=== PATIENT | female | born 1955 | race Hispanic/Latino ===

== ENCOUNTER → 2019-06-06 | Day surgery (SDC) | payer BC ==
--- NOTE | 2019-05-31 13:56 | Diagnostic Imaging Report ---
Chest, 2 views, 05/31/2019. History: Preop, foot surgery. Comparison: None available. Findings: The cardiomediastinal silhouette and pulmonary vasculature are within normal limits. The lungs are clear without evidence of consolidation or pleural effusion. Mild degenerative changes are present in the thoracic spine. There are no acute osseous or soft tissue abnormalities. Impression: No acute cardiopulmonary abnormality. Signed by: Sascha Almaraz on 05/31/2019 1:53 PM
[~2019-06-06] MED LIST: ACETAMINOPHEN 1000 MG/100 ML IV ONE; BUPIVACAINE HCL 0.5% INJ 30 ML VIAL INJ ONE; CEFAZOLIN SOD 1 GM/NS 50ML 50 ML IV ONE; DEXAMETHASONE SOD PHOS INJ 4 MG/ML VIAL ONE; FENTANYL CITRATE/PF 100MCG/2 ML INJ ONE; KETOROLAC TROMETHAMINE 30 MG/ML VIAL ONE; LIDOCAINE HCL 2% LOCAL INJ 5 ML SDV VIAL INJ ONE; MEPERIDINE HCL INJ 25 MG/ML VIAL ONE; MIDAZOLAM HCL 2 MG/2 ML VIAL ONE; ONDANSETRON HCL INJ 2MG/ML 2ML 2 MG/ML VIAL ONE; PROPOFOL IV EMULSION 10 MG/ML 20 ML VIAL ONE; SEVOFLURANE INHAL SOLN 250 ML PEN BTL ONE; THYROID MEDICATION PO
[2019-06-06 08:30] VITALS: BP 178/82
--- NOTE | 2019-06-06 08:48 | Operative Report ---
DATE OF PROCEDURE: 06/06/2019 SURGEON: Wilmer Guzman DPM PREOPERATIVE DIAGNOSES: 1. Right hallux valgus. 2. Right tailor's bunion. 3. Right 5th digit hammer toe. [employer]: None. ANESTHESIA: General with a postoperative block consisting of 20 mL of 0.5% Marcaine plain mixed with 1 mL of dexamethasone phosphate. HEMOSTASIS: Pneumatic thigh tourniquet set at 350 mmHg for a total time of approximately 40 minutes. MATERIALS: 2-0 Vicryl, 3-0 Vicryl, 4-0 Prolene. ESTIMATED BLOOD LOSS: Less than 10 mL. PATHOLOGY: None. PROCEDURE NOTE: The patient was seen in the preoperative waiting room, where the correct procedure and site were identified. The patient was brought to the operating room and placed on the operating table in supine position. General anesthesia was initiated. At this time, a well-padded pneumatic tourniquet was placed about the patient's right thigh. The right foot, ankle, and leg was then scrubbed, prepped, and draped in the usual aseptic manner. The right foot, ankle, and leg was exsanguinated with an Esmarch bandage and the pneumatic thigh tourniquet was inflated to 350 mmHg for a total time approximately 40 minutes. Attention was directed to the dorsomedial aspect of the patient's right 1st metatarsophalangeal joint, where a 5 cm curvilinear incision was made directly over the joint medial to the extensor hallucis longus tendon. The incision was carried through subcutaneous tissue, it from deep or underling structures. All vital neurovascular structures were identified, retracted medially and laterally. All bleeders were cauterized or ligated as deemed necessary. At this time, utilizing a sagittal saw, the medial eminence was resected and passed off to the back table. Next, at the same incision a full lateral release was performed consisting of the deep transverse metatarsal ligament, lateral collateral ligament, as well as the fibular sesamoidal ligament. The hallux was then put through range of motion and found to be functioning in a more proper anatomic alignment. Next, utilizing sagittal saw, the dorsal eminence was resected and the bone was smoothed with anatomic alignment utilizing a rotary bur. The wound was then irrigated copiously with sterile saline. Capsule and deep tissue were reapproximated with 2-0 Vicryl, subcutaneous tissue with 3-0 Vicryl, and the skin was closed using a running interlocking stitch of 4-0 Prolene. Attention was then directed to the 5th metatarsal head, where a 3 cm curvilinear incision was made directly over the 5th metatarsophalangeal joint. Incision was carried down to the level of the capsule, where an inverted-L capsulotomy was performed. Utilizing McGlamry elevator, the 5th metatarsal head was freed of all capsular ligamentous attachments. Next, utilizing sagittal saw, the medial and dorsal eminence was resected and passed off to the back table and smoothed utilizing a rotary bur. The wound was then copiously irrigated with sterile saline. Capsular and deep tissue were reapproximated with 3-0 Vicryl, subcutaneous tissues with 3-0 Vicryl, and the skin was closed using a running interlocking stitch of 4-0 Prolene. Next, attention was directed to the proximal interphalangeal joint of the right 5th digit, where a diffuse hyperkeratotic lesion was noted. Utilizing a two converging semi-elliptical incisions angled proximal lateral to distal medial. The skin was excised and passed off to the back table. The 5th proximal interphalangeal joint was dissected and freed of all capsular ligamentous attachments. Utilizing sagittal saw, the head of the proximal phalanx was resected and passed off the back table. Deep tissue was reapproximated with 3-0 Vicryl, subcutaneous tissue with 3-0 Vicryl, and the skin was closed using simple interrupted sutures with 4-0 Prolene. All incision sites were dressed with Adaptic, 4x4s, Kerlix, Glen wrap, and a postop shoe. The patient tolerated the procedure and anesthesia well. The patient was transferred to the postoperative recovery room with vital signs stable and vascular status intact. The patient is monitored there for a short period time before being sent home with the following written and oral instructions: 1. Keep the dressing clean, dry, and intact. 2. The patient is to remain partial weightbearing heel touch with crutches to the right lower extremity to avoid any ambulation until being seen in the office. 3. The patient is given the office number and instructed to contact us if any problems arise. ZEYNEP Franco/ANAHY /[phone]
--- OUTSIDE RECORDS SUMMARY | 2019-06-07 09:41 | XMS REPORT ---
Author Author [facility] Address Unknown Phone Unavailable Care Team Providers Care Vascular Ultrasound Technician Name Role Phone RENUKA, Rodrigo WHITE Unavailable Unavailable Problems This patient has no known problems. Allergies, Adverse Reactions, Alerts This patient has no known allergies or adverse reactions. Medications This patient has no known medications. Results Test Description Test Time Test Comments Text Results Atomic Results Result Comments CHEST 2 VIEWS 2019-05-31 13:52:00 [place] [id number] Patient Name: ANABEL LUNSFORD MR #: [id number] : 1955 Age/Sex: 64/F Req #: [id number] Adm Physician: Ordered by: CHRISTOPHER GRAYSON DPM Report #: [id number] Location: OR Room/Bed: Procedure: [id number] DX/CHEST 2 VIEWS Exam Date: 05/31/19 Exam Time: 1305 REPORT STATUS: Signed Chest, 2 views, 05/31/2019. History: Preop, foot surgery. Comparison: None available. Findings: The cardiomediastinal silhouette and pulmonary vasculature are within normal limits. The lungs are clear without evidence of consolidation or pleural effusion. Mild degenerative changes are present in the thoracic spine. There are no acute osseous or soft tissue abnormalities. Impression: No acute cardiopulmonary abnormality. Signed by: Sascha Almaraz on 05/31/2019 1:53 PM Dictated By: SASCHA ALMARAZ MD [id number] Transcribed By: LALITO on 05/31/19 2245 COPY TO: CHRISTOPHER GRAYSON DPM CT, BRAIN, WITHOUT CONTRAST 2019-05-19 14:51:[address], BRAIN, WITHOUT CONTRAST INDICATION: Head trauma, minor, normal mental status (Age 19-64y) TECHNIQUE: Noncontrast axial imaging was obtained from the vertex to the skull base. Axial images were reconstructed using a bone algorithm. DOSE REDUCTION: Dose modulation, iterative reconstruction, and/or weight-based adjustment of the mA/kV was utilized to reduce the radiation dose to as low as reasonably achievable. COMPARISON: None. FINDINGS: Intracranial: Scattered foci of hypoattenuation within the periventricular and subcortical white matter are a nonspecific finding commonly attributed to chronic small vessel ischemic disease. No intracranial hemorrhage or abnormal extra-axial collection. No evidence of acute territorial infarct. No mass effect. No hydrocephalus. Osseous structures: No fracture. No suspicious lesion. Paranasal sinuses and mastoid air cells: No evidence of sinusitis. Mastoids are clear. Orbital contents: Globes are intact. IMPRESSION: No acute intracranial hemorrhage. If there is persistent clinical concern for intracranial pathology, MR examination is recommended for further characterization. Signed: Nadeen Gaytan Verified Date/Time: 05/19/2019 14:51:07
== END | disposition home or self-care (01) ==
LOC: OR 05:12
PROVIDERS: ATTEND Podiatrist Foot & Ankle Surgery
DX: M20.11 Hallux valgus (acquired), right foot (principal); M21.621 Bunionette of right foot; M20.41 Other hammer toe(s) (acquired), right foot; E03.9 Hypothyroidism, unspecified; Z01.810 Encounter for preprocedural cardiovascular examination; Z01.818 Encounter for other preprocedural examination
CPT/HCPCS: 28110; 28285; 28289; 71046; 93005; J0131; J0690; J1100; J1885; J2001; J2175; J2250; J2405; J2704; J3010